=== PATIENT | female | born 1995 | race Two or more races ===

== ENCOUNTER 2025-06-14 16:25 | Emergency (ER) | payer MEDICAID, OTHER ==
[~2025-06-14] VITALS: Ht 157.5 cm; Wt 153.3 kg
[2025-06-14 16:38] VITALS: BP 161/101; PULSE 104; RESP 18; TEMP 98.7; O2SAT 98
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
[2025-06-14] MEDS: KETOROLAC TROMETH 60MG/2ML VIAL IM ONE (17:12)
[2025-06-14] MEDS ORDERED: IBUP-1456 PO (17:38)
[2025-06-14] MEDS ORDERED: METH-1182 PO (17:38)
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
== END 2025-06-14 17:47 | disposition home or self-care (01) ==
LOC: EDBD 16:25 → ER 16:28
DX: S16.1XXA Strain of muscle, fascia and tendon at neck level, initial encounter (principal); S39.012A Strain of muscle, fascia and tendon of lower back, initial encounter; Z79.1 Long term (current) use of non-steroidal anti-inflammatories (NSAID); Z79.899 Other long term (current) drug therapy; V43.52XA Car driver injured in collision with other type car in traffic accident, initial encounter; Y93.89 Activity, other specified; Y92.488 Other paved roadways as the place of occurrence of the external cause; Y99.8 Other external cause status
CPT/HCPCS: 72040; 72100; 96372; 99284; J1885